=== PATIENT | female | born 1960 ===

== ENCOUNTER 2020-12-07 10:15 | Outpatient (CLI) | payer MEDICAID, SELFPAY ==
--- NOTE | 2020-12-07 10:15 | RT.EKG_ITS ---
APPROVED REPORT Exam: Resting ECG Reason for Exam: palpitations Patient Location: O HR:61 bpm ECG Measurements Heart Rate 61 AXIS MO 159 P 58 QRSd 96 QRS 14 QT 423 T 42 QTc 426 Conclusion Sinus rhythm...normal P axis, V-rate 50- 99 Baseline wander in lead(s) I,III,aVL,aVF,V2 Normal Electrocardiogram
== END 2020-12-07 10:16 ==
LOC: DI.CARD 10:16
PROVIDERS: Visit Provider Internal Medicine Cardiovascular Disease
DX: R00.2 Palpitations (principal)
CPT/HCPCS: 93010